=== PATIENT | female | born 1930 | race Caucasian/White ===

== ENCOUNTER 2016-11-21 10:17 | Observation (INO) | payer MEDICARE ==
[2016-11-21] MEDS ORDERED: HOME MEDICATION LIST NEEDED 1 EA EACH MC ONE (10:46)
[2016-11-21] MEDS ORDERED: ONDANSETRON HCL 4 MG/2 ML VIAL ONE (10:55)
--- NOTE | 2016-11-21 11:16 | ER PHYSICIAN DOCUMENTATION ---
Physician Documentation [facility] Name:Leslie Artis Age:86 yrs Sex:Female :1930 Arrival Date:11/21/2016 Time:10:17 Bed4 Private MD:Gracie Nolasco ED PhysicianScott Tsai Disposition: 11/21 10:50 Chart complete. cd Disposition: 11/21/16 11:02 Admit ordered for Gracie Nolasco. Preliminary diagnosis are Weakness - : Generalized, Malaise & Fatigue, Dehydration, Nausea - : Intractable. - Bed requested for Medical/Surgical. - Condition is Fair. - Problem is an ongoing problem. - Symptoms are unchanged. 23 HR OBS Yes HPI: 10:20 This 86 yrs old Female presents to ER via Private Vehicle with complaints of cd Generalized Weakness, fatigue, dehydration and nausea. 10:20 The patient is a Dr. Nolasco () patient who has had longstanding fatigue, intractable cd nausea, generalized weakness for many weeks. She was seen at the [facility] this past Monday, 3 days ago, and had labs and an evaluation. Dr. Nolasco is concerned she may have an underlying malignancy or other process going on. She sent the patient to the ED for evaluation and admission to the hospital. The patient denies SOB, chest pain, abdominal pain , melena, syncope, weight loss, headaches or UTI symptoms. She has intractable nausea and decreased PO intake. Her daughter states she lives alone and is unable to care for herself at home.. Onset: The symptom(s)/episode began/occurred gradually, 3 week(s) ago, and became worse 3 day(s) ago. Severity of symptoms: At their worst the symptoms were moderate in the emergency department the symptoms are unchanged. The patient has experienced similar episodes in the past. Historical: - Allergies: No known drug Allergies; - Home Meds: 1. temazepam 15 mg oral cap 1 cap once daily at bedtime as needed 2. Celebrex 200 mg oral cap 1 cap once daily 3. amlodipine 5 mg oral tab 1 tab once daily 4. Hydrocodone-Acetaminophen 5-325 mg Oral 5. Flexeril Oral 6. Lasix 20 mg oral tab 1 tab weekly prn - PMHx: Nausea (July 31, 2015); Dehydration (July 31, 2015); - Tetanus: < 10 years. - Ebola Screening: : Patient negative for fever greater than or equal to 101.5 degrees Fahrenheit, and additional compatible Ebola Virus Disease symptoms. Patient denies exposure to infectious person. Patient denies travel to an Ebola-affected area in the 21 days before illness onset. . - Immunization history: Pneumococcal vaccine is up to date, Flu Vaccine < 1 year. - Social history: Smoking status: Patient states was never smoker of tobacco. ROS: 10:45 ENT: Negative for injury, pain, epistaxis and discharge. cd Neck: Negative for injury, pain, stiffness and swelling. Back: Negative for injury, pain or muscle spasms. : Negative for injury, bleeding, discharge, dysuria, frequency, urgency and swelling. MS/Extremity: Negative for injury, deformity, edema, calf tenderness, pain or coldness. 10:45 Skin: Negative for injury, rash, itching and discoloration. cd 10:45 Constitutional: Positive for fatigue, malaise, poor PO intake, Negative for chills, fever. 10:45 Cardiovascular: Negative for chest pain, edema, orthopnea, palpitations. 10:45 Respiratory: Negative for orthopnea, shortness of breath. 10:45 Abdomen/GI: Positive for nausea, anorexia, Negative for abdominal pain, vomiting, diarrhea, constipation, abdominal distension, hematemesis, black/tarry stool, rectal bleeding. 10:45 Neuro: Positive for weakness, Negative for altered mental status, headache, loss of consciousness, seizure activity, speech changes, syncope, near syncope. 10:45 All other systems are negative. Exam: Eyes: Pupils equal round and reactive to light, extra-ocular motions intact. Lids and lashes normal. Conjunctiva and sclera are non-icteric and not injected. Cornea within normal limits. Periorbital areas with no swelling, redness, or edema. ENT: Nares patent. No nasal discharge, no septal abnormalities noted. Tympanic membranes are normal and external auditory canals are clear. Oropharynx with no redness, swelling, or masses, exudates, or evidence of obstruction, uvula midline. Mucous membranes dry Neck: Trachea midline, no thyromegaly or masses palpated, and no cervical lymphadenopathy. Supple, full range of motion without nuchal rigidity, or vertebral point tenderness. No Meningismus. Chest/axilla: Normal chest wall appearance and motion. Nontender with no deformity. No lesions are appreciated. Back: No spinal tenderness. No costovertebral tenderness. Full range of motion. Skin: Warm, dry with normal turgor. Normal color with no rashes, no lesions, and no evidence of cellulitis. MS/ Extremity: Pulses equal, no cyanosis. Neurovascular intact. Full, normal range of motion. 10:50 Neuro: Awake and alert, GCS 15, oriented to person, place, time, and situation. cd Cranial nerves II-XII grossly intact. Motor strength 5/5 in all extremities. Sensory grossly intact. Cerebellar exam normal. Normal gait. 10:50 Constitutional: The patient appears alert, awake, non-diaphoretic, non-toxic, well developed, well nourished. 10:50 Cardiovascular: Rate: normal, Rhythm: regular, Pulses: no pulse deficits are appreciated, Heart sounds: normal, Edema: is not appreciated. 10:50 Respiratory: the patient does not display signs of respiratory distress, Respirations: normal, no acute changes, Breath sounds: are normal, clear throughout. 10:50 Abdomen/GI: Inspection: abdomen appears normal, Bowel sounds: active, all quadrants, Palpation: abdomen is soft and non-tender, mass, is not appreciated, rebound tenderness, is not appreciated, voluntary guarding, is not appreciated, involuntary guarding, is not appreciated, no appreciated organomegaly, Rectal exam: the exam is deferred. Vital Signs: 10:25 BP 188 / 86; Pulse 76; Resp 16; Temp 97.9(TE); Pulse Ox 96% on R/A; Weight 55.79 kg; lp Height 5 ft. 2 in. (157.48 cm); Pain 3/10; 11:13 BP 165 / 68; Pulse 65; Resp 18; Pulse Ox 96% on R/A; lp 10:25 Body Mass Index 22.50 (55.79 kg, 157.48 cm) lp [place] Coma Score: 10:50 Eye Response: spontaneous(4). Verbal Response: oriented(5). Motor Response: obeys cd commands(6). Total: 15. MDM: 10:25 Data interpreted: Pulse oximetry: on room air is 96 %. Interpretation: normal. cd Counseling: I had a detailed discussion with the patient and/or guardian regarding: the historical points, exam findings, and any diagnostic results supporting the discharge/admit diagnosis, lab results, the need for further work-up and treatment in the hospital. 10:35 Differential Diagnosis Dehydration, UTI, Generalized Weakness, Poor ADLS, Declining cd condition. 10:50 Physician consultation: Gracie Nolasco MD was called at 10:50, was contacted at 10:50, regarding admission, to the floor, consult, patient's condition, need to evaluate the patient as soon as possible, and will see patient in inpatient room, shortly, later today. Admission orders: after a detailed discussion of the patient's condition and case, the admit orders are written by me. 11:00 Patient medically screened. cd 11:00 Data reviewed: vital signs, nurses notes, old medical records, and as a result, I will cd admit patient, administer IV fluids, NS bolus, NS maintenence, and Zofran. 11/21 11:34 Order name: UA W/ MICRO -CULTURE IF IND; Complete Time: 15:47 [facility] 11/21 15:46 Interpretation: Normal Except: URINE KETONE 5mg/dL; URINE BLOOD TRACE; Dehydration, cd Hematuria. 11/21 11:41 Order name: CBC AUTO DIF, MDIF/RMOR IF IND [facility] 11/21 15:47 Interpretation: Normal. 11/21 11:50 Order name: BASIC METABOLIC PANEL [facility] 11/21 15:47 Interpretation: Normal Except: CARBON DIOXIDE 21; CREATININE 1.1; Dehydration. 11/21 11:50 Order name: MAGNESIUM [facility] 11/21 15:47 Interpretation: Normal. 11/21 11:50 Order name: HEPATIC PANEL [facility] 11/21 15:47 Interpretation: Normal. 11/21 11:50 Order name: LIPASE [facility] 11/21 15:47 Interpretation: Normal. 11/21 11:50 Order name: C-REACTIVE PROTEIN [facility] 11/21 15:47 Interpretation: Normal. 11/21 17:04 Order name: AMYLASE [facility] 11/22 07:23 Order name: COMPREHENSIVE METABOLIC PANEL [facility] 11/22 07:28 Order name: CBC AUTO DIF, MDIF/RMOR IF IND [facility] 11/21 11:00 Order name: Urine Dip; Complete Time: 11:12 cd Dispensed Medications: 10:35 Drug: NS 0.9% 400 ml; Route: IV; Rate: bolus; Site: left antecubital; lp 11:14 Follow up: IV Status: Completed infusion; IV Intake: 400ml lp 10:35 Drug: Zofran 4 mg; Route: IVP; Infused Over: 2 mins; Site: left antecubital; lp 11:14 Follow up: Response: Nausea is decreased lp 11:12 Drug: NS 0.9% 1000 ml; Route: IV; Rate: 100 ml/hr; Site: left antecubital; lp 11:14 Follow up: Response: Medication administered at discharge.; IV Status: Infusion lp continued upon admission Point of Care Testing: Urine Dip: 11:12 pH: 7.5; ; Specific [place]: 1.015; Ketones: Trace; Glucose: Negative; Protein: lp Negative; Leukocytes: Negative; Nitrite: Positive (+) ; Blood: Hemolyzed Trace; Bilirubin: Negative ; Urobilinogen: Normal Signatures: Codie Sanders RN RN lp Scott Tsai MD MD cd
--- NOTE | 2016-11-21 11:16 | ER NURSING DOCUMENTATION ---
Nurse's Notes [facility] Name:Leslie Artis Age:86 yrs Sex:Female :1930 Arrival Date:11/21/2016 Time::17 Bed4 Private MD:Gracie Nolasco Diagnosis:Weakness-: Generalized;Malaise & Fatigue;Dehydration;Nausea-: Intractable Presentation: 11/21 10:25 Presenting complaint: Patient states: Nausea, vomiting, abdominal pain. Transition of lp care: Home. 10:25 Acuity: KRISTI 3 lp 10:25 Method Of Arrival: Private Vehicle lp Triage Assessment: 10:44 General: Appears in no apparent distress, Behavior is appropriate for age. Pain: lp Complains of pain in abdomen Pain currently is 3 out of 10 on a pain scale. Cardiovascular: No deficits noted. Heart tones S1 S2. Respiratory: Breath sounds are clear bilaterally. GI: Bowel sounds present X 4 quads. Reports diarrhea, intolerance of fluids, intolerance of food, nausea. : No deficits noted. Historical: - Allergies: No known drug Allergies; - Home Meds: 1. temazepam 15 mg oral cap 1 cap once daily at bedtime as needed 2. Celebrex 200 mg oral cap 1 cap once daily 3. amlodipine 5 mg oral tab 1 tab once daily 4. Hydrocodone-Acetaminophen 5-325 mg Oral 5. Flexeril Oral 6. Lasix 20 mg oral tab 1 tab weekly prn - PMHx: Nausea (July 31, 2015); Dehydration (July 31, 2015); - Tetanus: < 10 years. - Ebola Screening: : Patient negative for fever greater than or equal to 101.5 degrees Fahrenheit, and additional compatible Ebola Virus Disease symptoms. Patient denies exposure to infectious person. Patient denies travel to an Ebola-affected area in the 21 days before illness onset. . - Immunization history: Pneumococcal vaccine is up to date, Flu Vaccine < 1 year. - Social history: Smoking status: Patient states was never smoker of tobacco. Screenin:46 Infectious Disease Risk None. Abuse screen: Denies threats or abuse. Denies injuries lp from another. Nutritional screening: No deficits noted. Assessment: 10:46 GI: Abd is soft Abd is non tender Reports. lp Vital Signs: 10:25 BP 188 / 86; Pulse 76; Resp 16; Temp 97.9(TE); Pulse Ox 96% on R/A; Weight 55.79 kg; lp Height 5 ft. 2 in. (157.48 cm); Pain 3/10; 11:13 BP 165 / 68; Pulse 65; Resp 18; Pulse Ox 96% on R/A; lp 10:25 Body Mass Index 22.50 (55.79 kg, 157.48 cm) lp [place] Coma Score: 10:50 Eye Response: spontaneous(4). Verbal Response: oriented(5). Motor Response: obeys cd commands(6). Total: 15. ED Course: 10:19 Patient arrived in ED. ds 10:19 Gracie Nolasco MD is Private Physician. ds 10:25 Codie Sanders, GUILLERMO is Primary Nurse. lp 10:25 Triage completed. lp 10:[address] Tsai notified. lp 10:46 Valuables Remains with patient Patient has correct armband on for positive lp identification. Placed in gown. Bed in low position. Call light in reach. Side rails up X 1. Cardiac Monitoring On for Nurse Monitoring only. Pulse Ox - RN Monitoring Only NIBP On - RN Monitoring Only. 10:46 Inserted peripheral IV: 20 gauge in left antecubital area and blood collected. lp 11:00 Scott Tsai MD is Attending Physician. cd 11:01 Gracie Nolasco MD is Admitting Physician. cd Administered Medications: 10:35 Drug: NS 0.9% 400 ml; Route: IV; Rate: bolus; Site: left antecubital; lp 11:14 Follow up: IV Status: Completed infusion; IV Intake: 400ml lp 10:35 Drug: Zofran 4 mg; Route: IVP; Infused Over: 2 mins; Site: left antecubital; lp 11:14 Follow up: Response: Nausea is decreased lp 11:12 Drug: NS 0.9% 1000 ml; Route: IV; Rate: 100 ml/hr; Site: left antecubital; lp 11:14 Follow up: Response: Medication administered at discharge.; IV Status: Infusion lp continued upon admission Point of Care Testing: Urine Dip: 11:12 pH: 7.5; ; Specific [place]: 1.015; Ketones: Trace; Glucose: Negative; Protein: lp Negative; Leukocytes: Negative; Nitrite: Positive (+) ; Blood: Hemolyzed Trace; Bilirubin: Negative ; Urobilinogen: Normal Intake: 11:14 IV: 400ml; Total: 400ml. lp Outcome: 11:02 Decision to Admit by Provider. cd 11:14 Admitted to Med/surg accompanied by nurse. lp 11:14 Condition: stable 11:14 Report given to Maisha LI 11:14 Instructed on need to admit 11:15 Patient left the ED. lp Signatures: Codie Sanders RN RN lp ot, Shaunna, Reg Reg Scott Salgado MD MD cd
[2016-11-21 11:22] LABS: URINE MUCUS NONE SEEN (Up to 25%)
[2016-11-21 11:32] LABS: URINE APPEARANCE CLEAR; URINE COLOR YELLOW; URINE GLUCOSE NORMAL (NEGATIVE); URINE KETONE 5mg/dL (NEGATIVE); URINE LEUKOCYTE ESTERASE NEGATIVE (NEGATIVE); URINE NITRITE NEGATIVE (NEGATIVE); URINE PH 7.5 (5-7); URINE PROTEIN NEGATIVE (NEG - TRACE); URINE UROBILINOGEN 0.2mg/dL (Normal) (NEG-1mg/dL)
[2016-11-21 11:33] LABS: URINE BACTERIA NONE SEEN (<10/hpf); URINE BILIRUBIN NEGATIVE (NEGATIVE); URINE BLOOD TRACE (NEGATIVE); URINE RBC 0-5/hpf (0-5/hpf); URINE SQUAMOUS EPITHELIAL CELL 0-5/hpf (<= 15/hpf); URINE WBC 0-4/hpf (0-4/hpf)
[2016-11-21 11:39] LABS: ALBUMIN 4.6 g/dL (3.5-5.0); ALKALINE PHOSPHATASE 93 U/L (38-126); ALT 29 U/L (9-52); AST 31 U/L (14-36); BILIRUBIN, DIRECT 0.7 mg/dL (0.0-0.4); BILIRUBIN, TOTAL 0.7 mg/dL (0.2-1.3); BLOOD UREA NITROGEN 18 mg/dL (7-17); CALCIUM 9.9 mg/dL (8.4-10.2); CHLORIDE 104 mmol/L (98-107); GLUCOSE 104 mg/dL (70-100); LIPASE 74 U/L (23-300); RED BLOOD COUNT 4.52 X 10^6uL (4.20-6.10); SODIUM 141 mmol/L (137-145); TOTAL PROTEIN 8.6 g/dL (6.3-8.2)
[2016-11-21 11:40] LABS: BASOPHILS 0.6 % (0.0-2.0); EOSINOPHILS 1.8 % (0.0-6.0); EOSINOPHILS# 0.1 X 10^3uL (0.0-0.4); HEMOGLOBIN 14.2 g/dL (12.0-16.0); LYMPHOCYTES 34.7 % (20.0-40.0); LYMPHOCYTES# 2.1 X 10^3uL (0.8-3.8); MEAN CORPUS. HGB CONCENTRATION 33.7 g/dL (32.0-36.0); MEAN CORPUSCULAR HEMOGLOBIN 31.3 pg (29.0-35.0); MONOCYTES 5.4 % (2.0-10.0); MONOCYTES# 0.3 X 10^3uL (0.2-1.0); NEUTROPHILS 57.5 % (54.0-75.0); NEUTROPHILS# 3.4 X 10^3uL (2.6-6.7); PLATELET COUNT 237 X 10^3uL (130-440); RED CELL DISTRIBUTION WIDTH 12.9 % (11.5-14.5)
[2016-11-21] MEDS ORDERED: ENALAPRILAT DIHYDRATE 1.25 MG/ML VIAL IV PRN (11:48)
[2016-11-21 11:49] LABS: C-REACTIVE PROTEIN < 5.0 mg/L (<10.0)
[2016-11-21] MEDS: NORMAL SALINE 1,000 ML IV SCH ×2 (12:08→18:45)
[2016-11-21] MEDS: ACETAMINOPHEN 325 MG TABLET PO PRN (13:02)
[2016-11-21] MEDS: ONDANSETRON ODT 4 MG TAB.RAPDIS PO PRN (13:41)
[2016-11-21] MEDS ORDERED: ONDANSETRON ODT 4 MG TAB.RAPDIS PO PRN (16:00)
[2016-11-21] MEDS ORDERED: ENALAPRILAT DIHYDRATE 1.25 MG/ML VIAL IV SCH (16:15)
[2016-11-21] MEDS: HYDROCHLOROTHIAZIDE 25 MG TABLET PO SCH (16:21)
[2016-11-21] MEDS: LISINOPRIL 10 MG TABLET PO SCH (16:21)
[2016-11-21 17:02] LABS: AMYLASE 105 U/L (30-110)
[2016-11-21] MEDS: LORazepam 0.5 MG TABLET PO PRN (17:38)
[2016-11-21] MEDS: TEMAZEPAM 15 MG PO PRN (20:25)
[2016-11-22] MEDS: NORMAL SALINE 1,000 ML IV SCH ×2 (04:41→22:08)
[2016-11-22] MEDS: PANTOPRAZOLE 40 MG VIAL IV SCH (06:14)
[2016-11-22] MEDS: LORazepam 0.5 MG TABLET PO PRN (06:14)
[2016-11-22 07:22] LABS: A/G RATIO 1.1; ALBUMIN 4.2 g/dL (3.5-5.0); ALKALINE PHOSPHATASE 75 U/L (38-126); ALT 30 U/L (9-52); AST 31 U/L (14-36); BILIRUBIN, TOTAL 0.7 mg/dL (0.2-1.3); BLOOD UREA NITROGEN 14 mg/dL (7-17); CALCIUM 9.3 mg/dL (8.4-10.2); CHLORIDE 109 mmol/L (98-107); GLUCOSE 84 mg/dL (70-100); POTASSIUM 3.8 mmol/L (3.5-5.1); SODIUM 141 mmol/L (137-145); TOTAL PROTEIN 7.9 g/dL (6.3-8.2)
[2016-11-22 07:26] LABS: EOSINOPHILS 3.3 % (0.0-6.0); HEMATOCRIT 39.8 % (36.0-48.0); HEMOGLOBIN 13.2 g/dL (12.0-16.0); LYMPHOCYTES 36.9 % (20.0-40.0); MEAN CORPUS. HGB CONCENTRATION 33.3 g/dL (32.0-36.0); MEAN CORPUSCULAR HEMOGLOBIN 31.4 pg (29.0-35.0); MEAN PLATELET VOLUME 8.6 fL (7.4-10.4); MONOCYTES 6.6 % (2.0-10.0); NEUTROPHILS 52.8 % (54.0-75.0); PLATELET COUNT 231 X 10^3uL (130-440); RED BLOOD COUNT 4.21 X 10^6uL (4.20-6.10); RED CELL DISTRIBUTION WIDTH 12.7 % (11.5-14.5)
[2016-11-22 07:27] LABS: BASOPHILS 0.4 % (0.0-2.0); EOSINOPHILS# 0.2 X 10^3uL (0.0-0.4); LYMPHOCYTES# 2.6 X 10^3uL (0.8-3.8); MONOCYTES# 0.5 X 10^3uL (0.2-1.0); NEUTROPHILS# 3.7 X 10^3uL (2.6-6.7)
[2016-11-22] MEDS: HYDROCHLOROTHIAZIDE 25 MG TABLET PO SCH (08:22)
[2016-11-22] MEDS: MELOXICAM 7.5 MG TABLET PO SCH (08:24)
[2016-11-22] MEDS: LISINOPRIL 10 MG TABLET PO SCH (08:24)
[2016-11-22] MEDS ORDERED: SENNOSIDES 8.6 MG TABLET PO SCH (09:00)
--- NOTE | 2016-11-22 10:41 | PROGRESS NOTE: IM APSO ---
Assessment and Plan - Date of Encounter Date of Encounter: 11/22/16 (1) Chronic back pain greater than 3 months duration Status: Chronic Assessment and plan: Continue usual medications. PT to start working with her today to preserve mobility and plan for safety. Current Visit: Yes (2) HTN (hypertension) Status: Chronic Assessment and plan: Usually well controlled, running high here, but has hx of hypotensive syncope so we need to be careful. Current Visit: Yes (3) Nausea Status: Acute Assessment and plan: Improving; her flare up over weekend definitely r/t not tolerating Biaxin to treat H pylori. Will consult with Dr De Leon about alternate treatment or maybe he should see and assess her chr c/o and test results and interesting MRI abd last year, altho' this presentation does not appear to be pancreatic in origin. Current Visit: Yes (4) H. pylori infection Status: Suspected Current Visit: Yes - Time Spent With Patient Total time spent with greater than 50% in coordination of care (as documented) at patient's floor/unit and/or counseling patient: 16-24 minutes (will not send home until safe to ambulate alone, needing assist at this time.) IM: PN Subjective General: fatigue, malaise, anxiety, no confusion HEENT: no headache Cardiovascular: no chest pain Respiratory: no cough Gastrointestinal: nausea, no abdominal pain, no diarrhea, no constipation Musculoskeletal: pain (chronic pain issues) IM: PN Objective Exam - I&O/Vital Signs I&O: Intake & Output 11/21/16 11/22/16 11/22/16 21:59 05:59 13:59 Intake Total 450 1066 Output Total 625 635 Balance -175 431 Intake: IV 866 Left Antecubital 866 Oral 450 200 Output: Urine 625 635 Other: Urine Appearance Clear Clear Urine Color Pale Yellow Voiding Method Toilet Toilet # Voids 3 Vital Signs: Last Vital Signs Temp 36.7 C 11/22/16 07:00 Pulse 69 11/22/16 07:00 Resp 17 11/22/16 07:00 BP 176/96 11/22/16 07:00 Pulse Ox 92 11/22/16 07:00 Oxygen Delivery Method Room Air - Constitutional General appearance: Present: average body habitus - Head Head exam: Present: atraumatic - Eye Eye exam: Present: EOMI - ENT ENT exam: Present: mucous membranes moist - Neck Neck exam: Absent: lymphadenopathy - Respiratory Respiratory exam: Present: clear. Absent: accessory muscle use - Cardiovascular Cardiovascular exam: Present: RRR - GI/Abdominal GI/Abdominal exam: Present: normal bowel sounds, soft - Extremities Exam Extremities exam: Absent: edema - Neurological Exam Neurological exam: Present: alert, oriented X3 - Psychiatric Psychiatric exam: Present: normal mood - Skin Skin exam: Absent: rash - Allied Health Notes Allied health notes reviewed: nursing - Lab Labs: Laboratory Last Values WBC 7.0 X 10^3uL (3.9-10.7) 11/22/16 06:35 RBC 4.21 X 10^6uL (4.20-6.10) 11/22/16 06:35 Hgb 13.2 g/dL (12.0-16.0) 11/22/16 06:35 Hct 39.8 % (36.0-48.0) 11/22/16 06:35 MCV 94.0 fL (80.0-100.0) 11/22/16 06:35 MCH 31.4 pg (29.0-35.0) 11/22/16 06:35 MCHC 33.3 g/dL (32.0-36.0) 11/22/16 06:35 RDW 12.7 % (11.5-14.5) 11/22/16 06:35 Plt Count 231 X 10^3uL (130-440) 11/22/16 06:35 MPV 8.6 fL (7.4-10.4) 11/22/16 06:35 Neutrophils % 52.8 % (54.0-75.0) L 11/22/16 06:35 Lymphocytes % 36.9 % (20.0-40.0) 11/22/16 06:35 Eosinophils % 3.3 % (0.0-6.0) 11/22/16 06:35 Basophils % 0.4 % (0.0-2.0) 11/22/16 06:35 Neutrophils # 3.7 X 10^3uL (2.6-6.7) 11/22/16 06:35 Lymphocytes # 2.6 X 10^3uL (0.8-3.8) 11/22/16 06:35 Monocytes 6.6 % (2.0-10.0) 11/22/16 06:35 Monocytes # 0.5 X 10^3uL (0.2-1.0) 11/22/16 06:35 Eosinophils # 0.2 X 10^3uL (0.0-0.4) 11/22/16 06:35 Basophils # 0.0 X 10^3uL (0.0-0.1) 11/22/16 06:35 Sodium 141 mmol/L (137-145) 11/22/16 06:35 Potassium 3.8 mmol/L (3.5-5.1) 11/22/16 06:35 Chloride 109 mmol/L (98-107) H 11/22/16 06:35 Carbon Dioxide 20 mmol/L (22-30) L 11/22/16 06:35 BUN 14 mg/dL (7-17) 11/22/16 06:35 Creatinine 1.0 mg/dL (0.5-1.0) 11/22/16 06:35 GFR Calculation Not Reportable 11/22/16 06:35 Glucose 84 mg/dL (70-100) 11/22/16 06:35 Calcium 9.3 mg/dL (8.4-10.2) 11/22/16 06:35 Magnesium 2.0 mg/dL (1.6-2.3) 11/21/16 10:34 Total Bilirubin 0.7 mg/dL (0.2-1.3) 11/22/16 06:35 Direct Bilirubin 0.7 mg/dL (0.0-0.4) H 11/21/16 10:34 AST 31 U/L (14-36) 11/22/16 06:35 ALT 30 U/L (9-52) 11/22/16 06:35 Alkaline Phosphatase 75 U/L (38-126) 11/22/16 06:35 C-Reactive Protein < 5.0 mg/L (<10.0) 11/21/16 10:34 Total Protein 7.9 g/dL (6.3-8.2) 11/22/16 06:35 Albumin 4.2 g/dL (3.5-5.0) 11/22/16 06:35 Albumin/Globulin Ratio 1.1 11/22/16 06:35 Amylase 105 U/L (30-110) 11/21/16 10:34 Lipase 74 U/L (23-300) 11/21/16 10:34 Urine Color Yellow 11/21/16 11:15 Urine Appearance Clear 11/21/16 11:15 Urine pH 7.5 (5-7) 11/21/16 11:15 Ur Specific [place] 1.020 (0.001-1.035) 11/21/16 11:15 Urine Protein Negative (NEG - TRACE) 11/21/16 11:15 Urine Ketones 5mg/dl (NEGATIVE) A 11/21/16 11:15 Urine Blood Trace (NEGATIVE) A 11/21/16 11:15 Urine Nitrate Negative (NEGATIVE) 11/21/16 11:15 Urine Bilirubin Negative (NEGATIVE) 11/21/16 11:15 Urine Urobilinogen 0.2mg/dl (normal) (NEG-1mg/dL) 11/21/16 11:15 Ur Leukocyte Esterase Negative (NEGATIVE) 11/21/16 11:15 Urine RBC 0-5/hpf (0-5/hpf) 11/21/16 11:15 Urine WBC 0-4/hpf (0-4/hpf) 11/21/16 11:15 Ur Squamous Epith Cells 0-5/hpf (<= 15/hpf) 11/21/16 11:15 Urine Bacteria None seen (<10/hpf) 11/21/16 11:15 Urine Mucus None seen (Up to 25%) 11/21/16 11:15 Urine Glucose Normal (NEGATIVE) 11/21/16 11:15 Quality Questions - VTE Prophylaxis Assessment VTE Present on Admission?: No Patient at risk for venous thromboembolism?: Yes VTE Risk Level: Low Risk Pharmaceutical VTE prophylaxis contraindication reason: not indicated Mechanical VTE prophylaxis contraindication reason: N/A- VTE prophylaxsis ordered (2) HTN (hypertension) Qualifiers: Hypertension type: essential hypertension Qualified Code(s): I10 - Essential (primary) hypertension
[2016-11-22] MEDS: SENNOSIDES 8.6 MG TABLET PO SCH (20:32)
[2016-11-22] MEDS: TEMAZEPAM 15 MG PO PRN (20:33)
[2016-11-23] MEDS: PANTOPRAZOLE 40 MG VIAL IV SCH (05:59)
[2016-11-23] MEDS: HYDROCHLOROTHIAZIDE 25 MG TABLET PO SCH (08:16)
[2016-11-23] MEDS: SENNOSIDES 8.6 MG TABLET PO SCH (08:18)
[2016-11-23] MEDS: LISINOPRIL 10 MG TABLET PO SCH (08:19)
[2016-11-23] MEDS: MELOXICAM 7.5 MG TABLET PO SCH (08:20)
--- NOTE | 2016-11-23 09:30 | PROGRESS NOTE: IM APSO ---
Assessment and Plan - Date of Encounter Date of Encounter: 11/23/16 (1) Chronic back pain greater than 3 months duration Status: Chronic Assessment and plan: Continue usual medications. PT to start working with her today to preserve mobility and plan for safety. Current Visit: Yes (2) HTN (hypertension) Status: Chronic Assessment and plan: Usually well controlled, running high here, but has hx of hypotensive syncope so we need to be careful. Current Visit: Yes (3) Nausea Status: Resolved Assessment and plan: d/t Biaxin and somewhat chr issue; PO pantoprazole BID, Dr Moises cano's H Pylori testing of stool, will order. Current Visit: Yes (4) H. pylori infection Status: Suspected Current Visit: Yes - Time Spent With Patient Total time spent with greater than 50% in coordination of care (as documented) at patient's floor/unit and/or counseling patient: 16-24 minutes IM: PN Subjective General: fatigue, malaise, anxiety, no confusion HEENT: no headache Cardiovascular: no chest pain Respiratory: no cough Gastrointestinal: nausea, no abdominal pain, no diarrhea, no constipation Musculoskeletal: pain (chronic pain issues) IM: PN Objective Exam - I&O/Vital Signs I&O: Intake & Output 11/22/16 11/23/16 11/23/16 21:59 05:59 13:59 Intake Total 1208 500 Output Total 625 1000 Balance 583 -500 Intake: Oral 1208 500 Output: Urine 625 1000 Other: Urine Appearance Clear Clear Urine Color Yellow Yellow Voiding Method Toilet Toilet # Voids 4 Vital Signs: Last Vital Signs Temp 37.1 C 11/23/16 07:00 Pulse 67 11/23/16 07:00 Resp 20 11/23/16 07:00 BP 167/83 11/23/16 07:00 Pulse Ox 93 11/23/16 07:00 Oxygen Delivery Method Nasal Cannula - Constitutional General appearance: Present: average body habitus - Head Head exam: Present: atraumatic - Eye Eye exam: Present: EOMI - ENT ENT exam: Present: mucous membranes moist - Neck Neck exam: Absent: lymphadenopathy - Respiratory Respiratory exam: Present: clear. Absent: accessory muscle use - Cardiovascular Cardiovascular exam: Present: RRR - GI/Abdominal GI/Abdominal exam: Present: normal bowel sounds, soft - Extremities Exam Extremities exam: Absent: edema - Neurological Exam Neurological exam: Present: alert, oriented X3 - Psychiatric Psychiatric exam: Present: normal mood - Skin Skin exam: Absent: rash - Allied Health Notes Allied health notes reviewed: nursing - Lab Labs: Laboratory Last Values WBC 7.0 X 10^3uL (3.9-10.7) 11/22/16 06:35 RBC 4.21 X 10^6uL (4.20-6.10) 11/22/16 06:35 Hgb 13.2 g/dL (12.0-16.0) 11/22/16 06:35 Hct 39.8 % (36.0-48.0) 11/22/16 06:35 MCV 94.0 fL (80.0-100.0) 11/22/16 06:35 MCH 31.4 pg (29.0-35.0) 11/22/16 06:35 MCHC 33.3 g/dL (32.0-36.0) 11/22/16 06:35 RDW 12.7 % (11.5-14.5) 11/22/16 06:35 Plt Count 231 X 10^3uL (130-440) 11/22/16 06:35 MPV 8.6 fL (7.4-10.4) 11/22/16 06:35 Neutrophils % 52.8 % (54.0-75.0) L 11/22/16 06:35 Lymphocytes % 36.9 % (20.0-40.0) 11/22/16 06:35 Eosinophils % 3.3 % (0.0-6.0) 11/22/16 06:35 Basophils % 0.4 % (0.0-2.0) 11/22/16 06:35 Neutrophils # 3.7 X 10^3uL (2.6-6.7) 11/22/16 06:35 Lymphocytes # 2.6 X 10^3uL (0.8-3.8) 11/22/16 06:35 Monocytes 6.6 % (2.0-10.0) 11/22/16 06:35 Monocytes # 0.5 X 10^3uL (0.2-1.0) 11/22/16 06:35 Eosinophils # 0.2 X 10^3uL (0.0-0.4) 11/22/16 06:35 Basophils # 0.0 X 10^3uL (0.0-0.1) 11/22/16 06:35 Sodium 141 mmol/L (137-145) 11/22/16 06:35 Potassium 3.8 mmol/L (3.5-5.1) 11/22/16 06:35 Chloride 109 mmol/L (98-107) H 11/22/16 06:35 Carbon Dioxide 20 mmol/L (22-30) L 11/22/16 06:35 BUN 14 mg/dL (7-17) 11/22/16 06:35 Creatinine 1.0 mg/dL (0.5-1.0) 11/22/16 06:35 GFR Calculation Not Reportable 11/22/16 06:35 Glucose 84 mg/dL (70-100) 11/22/16 06:35 Calcium 9.3 mg/dL (8.4-10.2) 11/22/16 06:35 Magnesium 2.0 mg/dL (1.6-2.3) 11/21/16 10:34 Total Bilirubin 0.7 mg/dL (0.2-1.3) 11/22/16 06:35 Direct Bilirubin 0.7 mg/dL (0.0-0.4) H 11/21/16 10:34 AST 31 U/L (14-36) 11/22/16 06:35 ALT 30 U/L (9-52) 11/22/16 06:35 Alkaline Phosphatase 75 U/L (38-126) 11/22/16 06:35 C-Reactive Protein < 5.0 mg/L (<10.0) 11/21/16 10:34 Total Protein 7.9 g/dL (6.3-8.2) 11/22/16 06:35 Albumin 4.2 g/dL (3.5-5.0) 11/22/16 06:35 Albumin/Globulin Ratio 1.1 11/22/16 06:35 Amylase 105 U/L (30-110) 11/21/16 10:34 Lipase 74 U/L (23-300) 11/21/16 10:34 Urine Color Yellow 11/21/16 11:15 Urine Appearance Clear 11/21/16 11:15 Urine pH 7.5 (5-7) 11/21/16 11:15 Ur Specific [place] 1.020 (0.001-1.035) 11/21/16 11:15 Urine Protein Negative (NEG - TRACE) 11/21/16 11:15 Urine Ketones 5mg/dl (NEGATIVE) A 11/21/16 11:15 Urine Blood Trace (NEGATIVE) A 11/21/16 11:15 Urine Nitrate Negative (NEGATIVE) 11/21/16 11:15 Urine Bilirubin Negative (NEGATIVE) 11/21/16 11:15 Urine Urobilinogen 0.2mg/dl (normal) (NEG-1mg/dL) 11/21/16 11:15 Ur Leukocyte Esterase Negative (NEGATIVE) 11/21/16 11:15 Urine RBC 0-5/hpf (0-5/hpf) 11/21/16 11:15 Urine WBC 0-4/hpf (0-4/hpf) 11/21/16 11:15 Ur Squamous Epith Cells 0-5/hpf (<= 15/hpf) 11/21/16 11:15 Urine Bacteria None seen (<10/hpf) 11/21/16 11:15 Urine Mucus None seen (Up to 25%) 11/21/16 11:15 Urine Glucose Normal (NEGATIVE) 11/21/16 11:15 (2) HTN (hypertension) Qualifiers: Hypertension type: essential hypertension Qualified Code(s): I10 - Essential (primary) hypertension
[2016-11-23] MEDS: ACETAMINOPHEN 325 MG TABLET PO PRN ×2 (12:02→21:30)
[2016-11-23] MEDS: ONDANSETRON ODT 4 MG TAB.RAPDIS PO PRN (14:28)
[2016-11-23] MEDS: LORazepam 0.5 MG TABLET PO PRN (15:18)
[2016-11-23] MEDS: ENALAPRILAT DIHYDRATE 1.25 MG/ML VIAL IV PRN ×2 (17:10→17:57)
[2016-11-23] MEDS ORDERED: ENALAPRILAT DIHYDRATE 1.25 MG/ML VIAL IV ONE (18:04)
[2016-11-23] MEDS: PANTOPRAZOLE 40 MG TABLET PO SCH ×2 (19:21→19:22)
[2016-11-23] MEDS ORDERED: LORazepam 0.5 MG TABLET PO ONE ×2 (19:24)
[2016-11-23] MEDS: TEMAZEPAM 15 MG PO PRN (21:29)
[2016-11-24] MEDS: PANTOPRAZOLE 40 MG TABLET PO SCH (06:55)
[2016-11-24] MEDS: MELOXICAM 7.5 MG TABLET PO SCH (08:29)
[2016-11-24] MEDS: HYDROCHLOROTHIAZIDE 25 MG TABLET PO SCH (08:30)
[2016-11-24] MEDS: SENNOSIDES 8.6 MG TABLET PO SCH (08:30)
[2016-11-24] MEDS: LISINOPRIL 10 MG TABLET PO SCH (08:30)
--- NOTE | 2016-11-24 08:48 | DC SUMMARY: IM Note ---
Discharge Summary: IM/Peds Provider: Date of Admission: 11/21/16 Admitting Provider: ITALO RANDALL MD Attending Provider: ITALO RANDALL MD Discharging Provider: ITALO RANDALL MD Primary Care Provider: Discharge Date: 11/24/16 - Diagnosis (1) Chronic back pain greater than 3 months duration Status: Chronic (2) HTN (hypertension) Status: Chronic Qualifiers: Hypertension type: essential hypertension Qualified Code(s): I10 - Essential (primary) hypertension (3) Nausea Status: Resolved (4) H. pylori infection Status: Suspected Hospital Course: Pt exhausted from loss of sister and extended travel, came to clinic with fine VS and labs but pos for H Pylori. I started treatment, and I believe the biaxin is the reason for exacerbation of nausea, weakness and dehydration. We have plans with Dr De Leon to d/c Mobic, continue intensive PPI, and reconsider how important it is to tx H Pylori vs EGD. - Time Spent with Patient Total time spent providing and/or coordinating discharge services: Time with patient DS: Less than 30 minutes Discharge - Patient/Caregiver Discharge Instructions Activity Level: With cane and walker, as tolerated! Do continue the exercises given by PT. Diet: Usual, avoid excess salt which contributes to swelling and elevated blood pressure. Additional Instructions: See DR De Leon when possible and see me in 2 weeks with a few BP written down! Of course, call anytime if concerns arise. Overall discharge status: patient is progressing back to baseline Disposition: HOME, SELF-CARE Discharge Summary Data - Medication History Medication History: Home Medications Hydrocodone/Acetaminophen [[place] 5-325 Tablet] 1 each PO Q4H PRN 03/31/14 Temazepam [Restoril*] 15 mg PO HS PRN 03/31/14 Amoxicillin [Amoxil*] 1,000 mg PO BID 11/21/16 Clarithromycin 500 mg PO BID 11/21/16 Hydrochlorothiazide [Hydrodiuril*] 12.5 mg PO DAILY 11/21/16 Lisinopril [Prinivil*] 10 mg PO DAILY 11/21/16 Meloxicam [Meloxicam*] 15 mg PO DAILY 11/21/16 Omeprazole [Prilosec] 20 mg PO DAILY 11/21/16 Ondansetron Odt [Zofran Odt] 4 mg PO Q6H PRN 11/21/16 aspirin EC [Aspirin EC*] 81 mg PO DAILY 11/21/16 Inpatient Medications 11/21/16 12:44 Acetaminophen [Tylenol] 650 mg PO Q6H PRN 11/21/16 12:45 Ondansetron Odt [Zofran Odt] 4 mg PO Q6H PRN 11/21/16 16:00 Hydrochlorothiazide [Hydrodiuril] 12.5 mg PO DAILY Lisinopril [Prinivil] 10 mg PO DAILY Temazepam [Restoril*] 15 mg PO HS PRN hydroCODone/APAP 5/325 MG [[place]] 1 tab PO Q4H PRN 11/21/16 16:04 LORazepam [Ativan] 0.5 mg PO Q6H PRN 11/21/16 17:38 Enalaprilat Dihydrate [Vasotec] 1.25 mg IV Q6H PRN 11/22/16 09:00 Meloxicam [Mobic] 15 mg PO DAILY aspirin EC [Ecotrin 81 mg] 81 mg PO DAILY 11/22/16 21:00 Sennosides [Senna-Lax] 8.6 mg PO DAILY 11/23/16 17:00 Pantoprazole [Protonix] 40 mg PO BEFORE BRKFST/DINN Procedures and tests throughout hospitalization: Completed Lab Orders 11/21/16 10:34 AMYLASE [CHEM] Stat BASIC METABOLIC PANEL [CHEM] Stat C-REACTIVE PROTEIN [CHEM] Stat CBC AUTO DIF, MDIF/RMOR IF IND [HEM] Stat HEPATIC PANEL [CHEM] Stat LIPASE [CHEM] Stat MAGNESIUM [CHEM] Stat 11/21/16 11:15 UA W/ MICRO -CULTURE IF IND [URINE] Stat 11/22/16 06:35 COMPREHENSIVE METABOLIC PANEL [CHEM] Routine Pending Orders 11/21/16 12:44 Acetaminophen [Tylenol] 650 mg PO Q6H PRN 11/21/16 12:45 Ondansetron Odt [Zofran Odt] 4 mg PO Q6H PRN 11/21/16 16:00 Hydrochlorothiazide [Hydrodiuril] 12.5 mg PO DAILY Lisinopril [Prinivil] 10 mg PO DAILY Temazepam [Restoril*] 15 mg PO HS PRN hydroCODone/APAP 5/325 MG [[place]] 1 tab PO Q4H PRN 11/21/16 16:04 LORazepam [Ativan] 0.5 mg PO Q6H PRN 11/21/16 16:33 Telemetry monitoring CONTINUOUS TELE 11/21/16 17:38 Enalaprilat Dihydrate [Vasotec] 1.25 mg IV Q6H PRN 11/21/16 20:49 Advance diet as tolerated . 11/22/16 08:52 Occupation Therapy Eval and Treat [OT] Routine 11/22/16 09:00 Meloxicam [Mobic] 15 mg PO DAILY aspirin EC [Ecotrin 81 mg] 81 mg PO DAILY 11/22/16 10:42 Activity: Ambulate with Assist TID NAYAN [place] . 11/22/16 11:58 Physical Therapy Plan of Care [PT] Routine 11/22/16 21:00 Sennosides [Senna-Lax] 8.6 mg PO DAILY 11/22/16 Dinner Regular [DIET] 11/23/16 16:07 H PYLORI STOOL [SEND] Routine 11/23/16 17:00 Pantoprazole [Protonix] 40 mg PO BEFORE BRKFST/DINN Labs on day of discharge: Labs from last 24 hours 11/23/16 16:07 Stool H. pylori Ag Pending IM: Discharge Physical Exam - I&O/Vital Signs I&O: Intake & Output 11/23/16 11/24/16 11/24/16 21:59 05:59 13:59 Intake Total 920 450 Output Total 700 550 Balance 220 -100 Intake: Oral 920 450 Output: Urine 700 550 Other: Urine Appearance Clear Clear Urine Color Pale Yellow Stool Size Moderate Stool Characteristics Liquid Voiding Method Toilet Toilet # Voids 3 # Bowel Movements 1 Vital Signs: Last Vital Signs Temp 36.9 C 11/24/16 05:48 Pulse 62 11/24/16 05:48 Resp 20 11/24/16 05:48 BP 164/89 11/24/16 05:48 Pulse Ox 96 11/24/16 05:48 Oxygen Delivery Method Room Air - Constitutional General appearance: Present: average body habitus - Head Head exam: Present: atraumatic - Eye Eye exam: Present: EOMI - ENT ENT exam: Present: mucous membranes moist - Neck Neck exam: Absent: lymphadenopathy - Respiratory Respiratory exam: Present: clear. Absent: accessory muscle use - Cardiovascular Cardiovascular exam: Present: RRR - GI/Abdominal GI/Abdominal exam: Present: normal bowel sounds, soft - Extremities Exam Extremities exam: Absent: edema - Neurological Exam Neurological exam: Present: alert, oriented X3 - Psychiatric Psychiatric exam: Present: normal mood - Skin Skin exam: Absent: rash - Allied Health Notes Allied health notes reviewed: nursing
[2016-11-24] MEDS: ENALAPRILAT DIHYDRATE 1.25 MG/ML VIAL IV PRN (11:21)
[2016-11-24 11:55] VITALS: O2SAT 92
[2016-11-24] MEDS: LORazepam 0.5 MG TABLET PO PRN (13:46)
[2016-11-24] MEDS ORDERED: LISINOPRIL 10 MG TABLET PO SCH (16:00)
[2016-11-24 16:42] VITALS: BP 170/82; PULSE 65; RESP 16; TEMP 98.2
== END 2016-11-24 08:49 | disposition home or self-care (01) ==
LOC: ER 10:17 → IN 11:03
PROVIDERS: ADMIT Family Medicine; ATTEND Family Medicine
DX: A04.8 Other specified bacterial intestinal infections (principal); E86.0 Dehydration; M54.31 Sciatica, right side; R53.1 Weakness; R11.0 Nausea; I10 Essential (primary) hypertension; F41.8 Other specified anxiety disorders; G47.00 Insomnia, unspecified; Z79.899 Other long term (current) drug therapy
CPT/HCPCS: 36415; 80048; 80053; 80076; 81001; 82150; 83690; 83735; 85025; 86140; 87338; 93041; 96361; 96374; 96375; 96376; 99285; G0378; G8978; G8979; J2405; J7030